=== PATIENT | female | born 2000 | race African-American/Black ===

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

== ENCOUNTER 2022-04-28 22:33 | Emergency (ER) | payer MEDICAID, OTHER ==
[~2022-04-28] VITALS: Ht 172.7 cm; Wt 64.0 kg
[2022-04-28 23:05] VITALS: BP 104/62
[2022-04-29] MEDS ORDERED: FAMOTIDINE 20MG/2ML VIAL IV ONE (02:00)
[2022-04-29] MEDS ORDERED: SODIUM CHLORIDE 0.9% 1,000 ML IV ONE (02:00)
[2022-04-29] MEDS ORDERED: METOCLOPRAMIDE HCL 10MG/2ML VIAL IV ONE (02:00)
== END 2022-04-29 02:10 | disposition left against medical advice (07) ==
LOC: ER 22:33
DX: R11.2 Nausea with vomiting, unspecified (principal)
CPT/HCPCS: 81025; 99282; J7030